=== PATIENT | male | born 1965 | race Two or more races ===

== ENCOUNTER 2017-03-18 11:42 | Emergency (ER) | payer MEDICAID ==
[~2017-03-18] VITALS: Ht 167.6 cm; Wt 99.8 kg
[2017-03-18 11:59] VITALS: BP 126/77
[2017-03-18] MEDS ORDERED: Norco 5mg/325mg tab ORAL ONE (13:00)
--- NOTE | 2017-03-18 13:32 | Diagnostic Imaging Report ---
Indication: PAIN Technique: 3 views right hand Comparison: none Findings: There is an old healed fracture deformity of the fifth metacarpal. No acute fractures. No dislocations. Joint spaces are preserved Impression: No acute process
--- NOTE | 2017-03-18 13:49 | Emergency Room Report ---
History of Present Illness General Chief Complaint: Upper Extremity Injury Source: Patient Present Illness HPI 52-year-old male presents emergency department complaining of localized pain, swelling, tenderness and bruising to the nails and distal finger tips of the right index and middle finger x4 days. Patient states he accidentally slammed his fingers in a door. Patient reported bleeding from underneath the nail of the right index finger. Patient states pain is localized in rates pain as 7/10 in severity and states it is exacerbated upon palpation of the nail. Patient states he is up-to-date with vaccinations. Denies numbness tingling or loss of sensation or gross motor movements of the extremities, incontinence of bowel or bladder. Denies CP, Palpitations, LOC, AMS, dizziness, Changes in Vision, Sensation, paresthesias, or a sudden severe headache. Allergies: Coded Allergies: No Known Allergies (Unverified , 03/18/17) Patient History Past Medical History: see triage record Past Surgical History: none Pertinent Family History: none Immunizations: UTD Reviewed Nursing Documentation: PMH: Agreed, PSxH: Agreed Nursing Documentation-PMH Past Medical History: No Stated History Review of Systems All Other Systems: negative except mentioned in HPI Physical Exam Vital Signs Date Time Temp Pulse Resp B/P Pulse Ox O2 Delivery O2 Flow Rate FiO2 03/18/17 11:59 98.6 72 16 126/77 97 Room Air Sp02 EP Interpretation: reviewed, normal General Appearance: no apparent distress, alert, GCS 15, non-toxic Head: normocephalic, atraumatic Eyes: bilateral eye PERRL, bilateral eye normal inspection ENT: hearing grossly normal, normal pharynx, no angioedema, normal voice Neck: full range of motion, supple/symm/no masses Respiratory: lungs clear, normal breath sounds, speaking full sentences Cardiovascular #1: regular rate, rhythm, no edema Musculoskeletal: back normal, gait/station normal, normal range of motion, other - TTP to the distal right index and middle finger, swelling noted. subungual hematoma noted to both right index and middle finger nails. no evidence of nail avulsion., tender - TTP to the distal right index and middle finger, swelling noted. Neurologic: alert, oriented x3, responsive, motor strength/tone normal, sensory intact, speech normal Psychiatric: judgement/insight normal, memory normal, mood/affect normal Skin: normal color, no rash, warm/dry, well hydrated Procedures Additional Procedure Procedure Narrative PROCEDURE: Verbal consent was obtained to perform nail trepanation of both the right index and middle finger. without local or general anesthesia, nails were cleaned using Betadine solution, nail trepanation was performed using a 22g needle on the right index and middle fingers, single attempt was made to each nail, successful release of underlying blood, pt. tolerated well, there were no complications. Medical Decision Making PA Attestation Dr. Escalante is my supervising Physician whom patient management has been discussed with. Diagnostic Impression: Primary Impression: Subungual hematoma of right index finger Additional Impression: Subungual hematoma of right middle finger ER Course 52-year-old male presents emergency department complaining of localized pain, swelling, tenderness and bruising to the nails and distal finger tips of the right index and middle finger x4 days. Patient states he accidentally slammed his fingers in a door. Patient reported bleeding from underneath the nail of the right index finger. Patient states pain is localized in rates pain as 7/10 in severity and states it is exacerbated upon palpation of the nail. Patient states he is up-to-date with vaccinations. Ddx considered but are not limited to Fracture, dislocation, contusion, Sprain/ Strain/Spasm, Subungual hematoma, paronychia, nail avulsion Vital signs: are WNL, pt. is afebrile H&PE are most consistent with subungual hematoma to right index and middle finger will r/o fractures. ORDERS: - X-ray Right Hand 3 views - negative for fx, Dislocation, or significant soft tissue injury, per official radiology report. ED INTERVENTIONS: - 7.5mg [place] PO ---PROCEDURE: Verbal consent was obtained to perform nail trepanation of both the right index and middle finger. without local or general anesthesia, nails were cleaned using Betadine solution, nail trepanation was performed using a 22g needle on the right index and middle fingers, single attempt was made to each nail, successful release of underlying blood, pt. tolerated well, there were no complications. DISCHARGE: At this time pt. is stable for d/c to home. Will provide printed patient care instructions, and any necessary prescriptions. Care plan and follow up instructions have been discussed with the patient prior to discharge. Last Vital Signs Date Time Temp Pulse Resp B/P Pulse Ox O2 Delivery O2 Flow Rate FiO2 03/18/17 11:59 98.6 16 126/77 97 Room Air 03/18/17 11:59 72 Disposition: HOME, SELF-CARE Condition: Stable Scripts Acetaminophen* (TYLENOL EXTRA STRENGTH*) 500 Mg Tablet 500 MG ORAL Q6H Y for For Pain, #30 TAB 0 Refills Prov: Zahira Cristina 03/18/17 Doxycycline Hyclate* (VIBRAMYCIN*) 100 Mg Capsule 100 MG ORAL EVERY 12 HOURS for 7 Days, #14 CAP 0 Refills Prov: Zahira Cristina 03/18/17 Referrals: NOT CHOSEN IPA/MD,REFERRING (PCP) Patient Instructions: Subungual Hematoma Additional Instructions: Take medications as directed. Follow up with PCP in 3-5 days Return sooner to ED if new symptoms occur, or current symptoms become worse. - Please note that this Emergency Department Report was dictated using [employer] consultant technology software, occasionally this can lead to erroneous entry secondary to interpretation by the dictation equipment. Zahira Cristina Mar 18, 2017 13:49
[2017-03-18] MEDS ORDERED: TYLENOL EXTRA500 MG ORAL (13:56)
[2017-03-18] MEDS ORDERED: VIBRAMYCIN100 MG ORAL (13:56)
[2017-03-18 14:07] VITALS: BP 12/80
== END 2017-03-18 14:09 | disposition home or self-care (01) ==
LOC: EMR 12:26
DX: S60.121A Contusion of right index finger with damage to nail, initial encounter (principal); S60.131A Contusion of right middle finger with damage to nail, initial encounter; W22.8XXA Striking against or struck by other objects, initial encounter; Y92.89 Other specified places as the place of occurrence of the external cause
CPT/HCPCS: 11740; 73130; 99284; Z7502